=== PATIENT | female | born 1995 | race Hispanic/Latino ===

== ENCOUNTER 2021-03-13 10:27 | Day surgery (SDC) | payer OTHER ==
[2021-03-13] MEDS ORDERED: hydrALAZINE 20 MG/ML VIAL SLOW IVP PRN (10:37)
[2021-03-13 11:41] VITALS: BMI 28.7
[2021-03-13 11:55] LABS: Fetal Membranes Rupture No Membranes Rupture (No Rupture)
== END 2021-03-13 13:55 | disposition home or self-care (01) ==
LOC: CSHLD/OP 10:27
PROVIDERS: ATTEND Obstetrics & Gynecology
DX: O47.1 False labor at or after 37 completed weeks of gestation (principal); O99.891 Other specified diseases and conditions complicating pregnancy; O99.353 Diseases of the nervous system complicating pregnancy, third trimester; N89.8 Other specified noninflammatory disorders of vagina; G43.909 Migraine, unspecified, not intractable, without status migrainosus; Z3A.38 38 weeks gestation of pregnancy; Z79.899 Other long term (current) drug therapy; Z98.890 Other specified postprocedural states
CPT/HCPCS: 84112; 99284

== ENCOUNTER 2021-03-16 00:31 | Inpatient (IN) | payer OTHER ==
[2021-03-16 00:50] VITALS: BMI 28.9
[2021-03-16] MEDS ORDERED: ePHEDrine Sulfate 50 MG/10 ML VIAL SLOW IVP PRN (01:17)
[2021-03-16] MEDS ORDERED: Ondansetron PF 4 MG/2 ML Vial IVP PRN ×2 (01:17→02:15)
[2021-03-16] MEDS ORDERED: Promethazine HCl 25 MG/ML VIAL IM PRN ×2 (01:17→02:15)
[2021-03-16] MEDS ORDERED: Acetaminophen 325 MG TAB PO PRN (01:17)
[2021-03-16] MEDS ORDERED: Naloxone HCl 0.4 mg/ml Vial IVP PRN ×2 (01:17)
[2021-03-16] MEDS ORDERED: Hydrocerin (Eucerin) Cream 120 gm Jar TOP PRN (01:17)
[2021-03-16] MEDS ORDERED: diphenhydrAMINE 50 MG/ML VIAL IVP PRN (01:17)
[2021-03-16] MEDS ORDERED: Lactated Ringer's 500 ML IV PRN (01:17)
[2021-03-16] MEDS ORDERED: Communication Order-Pharmacy FS SCH (01:30)
[2021-03-16] MEDS ORDERED: Fentanyl 2 mcg/Bup 0.1% Cadd 100 ML ONE ×2 (01:47→09:25)
[2021-03-16 01:52] LABS: Hemoglobin 13.8 g/dL (12.0-15.5); Mean Corpuscular Hemoglobin 29.9 pg (27.0-33.0); Mean Corpuscular Volume 85.5 fl (81.6-98.3); Mean Platelet Volume 12.2 fl (7.4-10.4); Platelet Count 233 10x3/uL (150-450); RBC Distribution Width 12.9 % (11.5-14.5); Red Blood Cell (RBC) Count 4.61 10x6/uL (3.90-5.03); White Blood Cell (WBC) Count 15.1 10x3/uL (3.5-10.5)
[2021-03-16] MEDS: Fentanyl 2 mcg/Bupivacaine 0.1% Cassette 100 ML EPIDURAL SCH ×3 (02:14→14:44)
[2021-03-16] MEDS ORDERED: NS w/ Oxytocin 30 units 500 ML IVPB SCH (02:15)
[2021-03-16] MEDS ORDERED: Ibuprofen 800 MG TAB PO PRN (02:15)
[2021-03-16] MEDS ORDERED: Butorphanol Tartrate 1 MG/ML VIAL SLOW IVP PRN (02:15)
[2021-03-16] MEDS ORDERED: hydrALAZINE 20 MG/ML VIAL SLOW IVP PRN ×2 (02:15→18:15)
[2021-03-16] MEDS ORDERED: HYDROcodone/Acetaminophen 5/325 mg Tablet PO PRN ×2 (02:15)
[2021-03-16] MEDS ORDERED: Carboprost 250 MCG/ML AMP IM PRN (02:15)
[2021-03-16] MEDS ORDERED: Acetaminophen 500 MG TAB PO PRN (02:15)
[2021-03-16] MEDS ORDERED: Diphenoxylate HCl/Atropine Tablet PO PRN ×2 (02:15)
[2021-03-16] MEDS ORDERED: Misoprostol 200 MCG TAB RC PRN (02:15)
[2021-03-16] MEDS ORDERED: Methylergonovine 0.2 MG/ML VIAL IM PRN (02:15)
[2021-03-16] MEDS ORDERED: Lidocaine 1% (PF) 30 ML VIAL SC PRN (02:15)
[2021-03-16] MEDS ORDERED: Lactated Ringer's 1,000 ML IV SCH (02:15)
[2021-03-16] MEDS ORDERED: NS w/ Oxytocin 30 units 500 ML IV SCH ×2 (02:15)
[2021-03-16 02:24] LABS: Hep B Surf Ag Non-Reactive S/CO (NonReactive)
[2021-03-16 02:26] LABS: Syphilis Antibody Nonreactive (Nonreactive); Syphilis Antibody Index 0.03 S/CO (<1.00 Non-Reactive)
[2021-03-16 02:33] LABS: HBSAg Index 0.21 S/CO (0-0.99)
[2021-03-16] MEDS: Lactated Ringer's 1,000 ML IV SCH (04:57)
[2021-03-16 07:59] LABS: SARS-CoV-2 NAA Rapid Test Not Detected (NotDetected)
[2021-03-16] MEDS ORDERED: Milk Of Magnesia 30 ML UDCUP PO PRN (18:15)
[2021-03-16] MEDS ORDERED: Boostrix 0.5 ML (Tdap) VIAL IM ONE (18:15)
[2021-03-16] MEDS ORDERED: Bisacodyl 10 MG SUPP PR PRN (18:15)
[2021-03-16] MEDS: Docusate Calcium (SURFAK) 240 MG CAP PO SCH (23:16)
[2021-03-17] MEDS ORDERED: HYDROcodone/Acetaminophen 7.5/325 mg Tablet PO SCH (05:18)
[2021-03-17 05:32] LABS: Hemoglobin 10.1 g/dL (12.0-15.5); Mean Corpuscular HGB CONC 33.8 g/dL (32.0-36.0); Mean Corpuscular Hemoglobin 29.5 pg (27.0-33.0); Mean Corpuscular Volume 87.4 fl (81.6-98.3); Mean Platelet Volume 12.2 fl (7.4-10.4); Platelet Count 150 10x3/uL (150-450); RBC Distribution Width 13.1 % (11.5-14.5); Red Blood Cell (RBC) Count 3.42 10x6/uL (3.90-5.03); White Blood Cell (WBC) Count 21.9 10x3/uL (3.5-10.5)
[2021-03-17] MEDS: Ibuprofen 800 MG TAB PO PRN ×3 (05:33→20:47)
[2021-03-17] MEDS ORDERED: Benzocaine-Menthol 82.5 ML CAN TOP PRN (05:53)
[2021-03-17 06:22] LABS: MDiff Complete? YES
[2021-03-17 06:26] LABS: Band 6 % (5-11); Eosinophils 1 % (0-10); Lymphocytes 6 % (21-51); Monocytes 6 % (0-10); Neutrophil 78 % (42-75); Reactive Lymphocytes 3 % (0-10)
[2021-03-17] MEDS: Lactated Ringer's 1,000 ML IV SCH ×4 (06:37→14:49)
[2021-03-17] MEDS: Ferrous Sulfate 325 MG TAB PO SCH ×2 (09:13→10:38)
[2021-03-17] MEDS: Docusate Calcium (SURFAK) 240 MG CAP PO SCH ×2 (09:13→20:47)
[2021-03-18] MEDS: Ibuprofen 800 MG TAB PO PRN (06:48)
[2021-03-18] MEDS: Lactated Ringer's 1,000 ML IV SCH ×2 (09:08→11:54)
[2021-03-18] MEDS: Ferrous Sulfate 325 MG TAB PO SCH (09:09)
[2021-03-18 10:29] VITALS: BP 114/68; TEMP 98.4
[2021-03-18] MEDS: Docusate Calcium (SURFAK) 240 MG CAP PO SCH (11:54)
== END 2021-03-18 14:40 | disposition home or self-care (01) | DRG 807 ==
LOC: CSHLD/OP 00:31 → CSHLD 04:56 → CSHPP 03-17 10:25
PROVIDERS: ADMIT Obstetrics & Gynecology; ATTEND Obstetrics & Gynecology
PROC: 10E0XZZ Delivery of Products of Conception, External Approach (ICD-10-PCS; principal; 2021-03-16)
PROC: 10907ZC Drainage of Amniotic Fluid, Therapeutic from Products of Conception, Via Natural or Artificial Opening (ICD-10-PCS; 2021-03-16)
PROC: 0HQ9XZZ Repair Perineum Skin, External Approach (ICD-10-PCS; 2021-03-16)
DX: O77.0 Labor and delivery complicated by meconium in amniotic fluid (principal); Z37.0 Single live birth; Z20.822 Contact with and (suspected) exposure to COVID-19; Z3A.39 39 weeks gestation of pregnancy; O70.0 First degree perineal laceration during delivery
CPT/HCPCS: 36415; 51702; 84112; 85025; 85027; 86780; 86850; 86900; 86901; 87340; 99284; 99285; J2590; J7120; U0002